=== PATIENT | female | born 1945 | race Asian ===

== ENCOUNTER 2016-12-02 23:37 | Observation (INO) | payer OTHER ==
[~2016-12-02] VITALS: Ht 165.1 cm; Wt 80.6 kg
[~2016-12-02 23:37] MED LIST: ASPIR 8181 M1 PO; ASPIRIN E.C.81 M1 PO; HYDRODIURIL,ORE25 MG PO; Levothroid,Synthroid PO; ZOCOR20 MG PO; Zocor PO
[2016-12-03 00:20] LABS: HEMATOCRIT 36.6 % (36.0-46.0); MCH 26.5 PG (29.0-34.0); MCHC 33.3 G/DL (30.0-36.0); MCV 79.6 FL (83-99); MEAN PLAT.VOLUME 11.7 uM^3 (9.5-12.4); PLATELET COUNT 280 K/uL (156-360); RBC DIS.WIDTH-CV 13.5 % (11.8-14.6); RBC DIS.WIDTH-SD 38.4 % (39-53); WHITE BLOOD COUNT 8.8 K/uL (4.1-10.2)
[2016-12-03 00:29] LABS: CHLORIDE 101 mEq/L (99-109); POTASSIUM 3.6 mEq/L (3.7-5.4); SODIUM 137 mEq/L (136-147)
[2016-12-03 00:31] LABS: GLUCOSE 87 mg/dL (70-99)
[2016-12-03 00:32] LABS: ANION GAP 8 MEQ/L (2-14)
[2016-12-03 00:34] LABS: GFR ESTIMATE (CALCULATED) > 59 mL/min/
[2016-12-03 00:35] LABS: UREA NITROGEN (BUN) 21 mg/dL (9-23)
[2016-12-03 00:37] LABS: TROP-I INTERPRETATION NEGATIVE; TROPONIN-I < 0.01 ng/mL (0.0-0.30)
[2016-12-03] MEDS ORDERED: LO-DOSE ASPIRIN81 M1 PO (01:53)
[2016-12-03] MEDS ORDERED: HYDROCHLOROTH12.5 M3 PO (01:54)
[2016-12-03] MEDS ORDERED: LOSARTAN POTASS50 MG PO (01:55)
[2016-12-03] MEDS ORDERED: VITAMIN B-12250 MCG PO (01:56)
[2016-12-03] MEDS ORDERED: NEOMYCIN-POLYMY10 ML BOTH EARS (01:56)
[2016-12-03 07:12] VITALS: BP 152/70
[2016-12-03 10:57] LABS: TROP-I INTERPRETATION NEGATIVE; TROPONIN-I < 0.01 ng/mL (0.0-0.30)
[2016-12-03] MEDS ORDERED: NITROSTAT0.4 MG SL (11:18)
[2016-12-03] MEDS ORDERED: HYDROCHLOROTHIA25 MG PO (11:18)
[2016-12-03] MEDS ORDERED: MAG-AL PLUS SUS30 ML PO (11:19)
[2016-12-03] MEDS ORDERED: PROTONIX20 MG PO (11:19)
[2016-12-03 11:45] VITALS: BP 112/55
[2016-12-03 17:09] LABS: TROP-I INTERPRETATION NEGATIVE; TROPONIN-I < 0.01 ng/mL (0.0-0.30)
== END 2016-12-03 19:47 | disposition home or self-care (01) ==
LOC: EME 23:37 → EDOF 12-03 01:41 → 5WEST 12-03 06:55
PROVIDERS: Internal Medicine
DX: R07.9 Chest pain, unspecified (principal); R00.1 Bradycardia, unspecified; E87.6 Hypokalemia; I10 Essential (primary) hypertension; E78.5 Hyperlipidemia, unspecified; Z87.11 Personal history of peptic ulcer disease; Z79.82 Long term (current) use of aspirin; Z82.49 Family history of ischemic heart disease and other diseases of the circulatory system
CPT/HCPCS: 71020; 80048; 84484; 85027; 93005; 99281; 99285; G0378